=== PATIENT | male | born 1975 | race Caucasian/White ===

== ENCOUNTER → 2017-07-22 | Outpatient (CLI) | payer BC ==
--- NOTE | 2017-07-22 10:13 | US ---
EXAMINATION TYPE: US prostate transrectal DATE OF EXAM: 07/22/2017 COMPARISON: NONE CLINICAL HISTORY: N40.1 BPH. BPH, difficult urination, weak, slow urine stream This examination was performed using the transrectal probe. EXAM MEASUREMENTS: Gland Size: 4.7 x 2.4 x 4.5cm Volume: 26.8ml Predicted PSA: 3.2 Actual PSA (if available):2.0 (PSA from 2015) Enlarged gland with somewhat heterogeneous echogenicity, 3.1 x 2.2 x 1.9cm cystic area seen midline b ase Initial images are seminal vesicles which are felt within normal limits. Prostate gland is upper limi ts of normal in size. Large thin-walled cystic lesion centrally in base measures 3.1 cm on long axis could reflect prostatic utricle cyst or Mullerian duct cyst . IMPRESSION: Prostate gland is normal in size, no worrisome nodules are identified. Note is made of 3 .1 cm central thin-walled cyst in the prostatic base, consider mullerian duct cyst. Advised urology maritza ernst.
== END | disposition home or self-care (01) ==
LOC: RADUSMAIN 08:00
PROVIDERS: ATTEND Family Medicine
DX: N42.83 Cyst of prostate (principal)
CPT/HCPCS: 76872

== ENCOUNTER → 2018-07-29 | Day surgery (SDC) | payer BC ==
[2018-07-27 14:51] VITALS: BMI 40.7
[~2018-07-29] MED LIST: LACTATED RINGERS 1,000 ML IV ONE; LIDOCAINE 1% 20 ML VIAL (10MG/ML) FOR IV START INTRADERMA ONE; LIDOCAINE 1% INJ 10MG/ML (20 ML MDV) ONE; PROPOFOL 10 MG/ML 20 ML VIAL IV ONE
[2018-07-29 11:21] VITALS: RESP 16; TEMP 98.6
--- NOTE | 2018-07-29 12:43 | P.PCN ---
Date of Procedure: 07/29/18 Procedure(s) Performed: Procedure: Colonoscopy and polypectomy. Preoperative diagnosis: Family history of colon cancer. Postoperative Diagnosis: Distal sigmoid polyp snared but no large polyps or cancer. Preparation: HalfLytely prep. Sedation: Was provided by anesthesia. Brief clinical history: The patient is a 43-year-old male who is scheduled for this evaluation because of family history of colon cancer in his father. The purpose of this exam is to rule out neoplasia. The patient has no significant abdominal symptoms, overt bleeding or anemia. Procedure: With the patient on his left lateral decubitus position and after informed consent and adequate sedation, the perianal area was inspected and it did not show any fissures or fistulas. There were no masses felt on digital rectal examination. The Olympus CFQ 160L video colonoscope was then inserted in the rectum in the usual fashion and advanced to the cecum. There was a small polyp in the distal sigmoid that was snared and retrieved by suction and there were no large polyps or cancer. The mucosa appeared healthy. No obvious diverticular disease or other pathology. I retroflexed the endoscope in the rectum before the endoscope was withdrawn. The patient tolerated the procedure well. Plan: The patient was reassured. In light of his history, I am recommending repeat exam in 5 years. He will follow up with you as planned.
[2018-07-29 12:57] VITALS: BP 139/92; PULSE 77
== END ==
LOC: ORWHC2ENDO 10:44
DX: Z12.11 Encounter for screening for malignant neoplasm of colon (principal); K63.5 Polyp of colon; K58.9 Irritable bowel syndrome, unspecified; G47.33 Obstructive sleep apnea (adult) (pediatric); Z72.0 Tobacco use; Z80.0 Family history of malignant neoplasm of digestive organs
CPT/HCPCS: 88305; 45385; J2001; J2704

== ENCOUNTER → 2019-02-03 | Outpatient (CLI) | payer BC ==
--- NOTE | 2019-02-03 13:21 | CT ---
EXAMINATION TYPE: CT thoracic spine wo con DATE OF EXAM: 02/03/2019 COMPARISON: None HISTORY: Upper back pain CT DLP: 2506 mGycm Automated exposure control for dose reduction was used. FINDINGS: The thoracic spine vertebral bodies maintain normal vertebral body heights and alignment. There are s mall anterior osteophytes within the midthoracic spine. Although the spinal canal is limited on CT th ere is no gross evidence of high-grade spinal canal stenosis nor neural foraminal narrowing. Paraspin al musculature is unremarkable and symmetric. A right eccentric disc bulge is seen at T10-T11. Modera te coronary calcifications are seen within the left main coronary artery. Right lower lobe pleural pa renchymal scarring and/or atelectasis is noted. IMPRESSION: 1. NO EVIDENCE OF THORACIC VERTEBRAL BODY HEIGHT LOSS OR MALALIGNMENT. NO ACUTE FRACTURE. MILD MULTIL EVEL DEGENERATIVE DISC DISEASE WITH RIGHT ECCENTRIC BROAD-BASED DISC BULGE AT T10-T11. EVALUATION OF THE SPINAL CANAL IS LIMITED ON CT BUT COULD BE FURTHER EVALUATED WITH MRI. 3. RIGHT LOWER LOBE LINEAR PLEURAL PARENCHYMAL SCARRING AND/OR ATELECTASIS.
--- NOTE | 2019-02-03 15:13 | US ---
EXAMINATION TYPE: US renals and bladder DATE OF EXAM: 02/03/2019 COMPARISON: NONE CLINICAL HISTORY: R82.8 Abnormal Urine cytology. EXAM MEASUREMENTS: Right Kidney: 12.2 x 6.7 x 6.9 cm Left Kidney: 12.3 x 6.1 x 7.9 cm Right Kidney: No hydronephrosis or masses seen Left Kidney: No hydronephrosis or masses seen Bladder: not well distended Bilateral Jets seen: Yes Kidneys show normal cortical medullary differentiation. There is no ascites. Liver has a coarse echotexture which may be indicative of underlying hepatic steatosis. IMPRESSION: Renal sizes as described.
== END | disposition home or self-care (01) ==
LOC: RADCTMAIN 12:07
PROVIDERS: ATTEND Family Medicine
DX: M51.24 Other intervertebral disc displacement, thoracic region (principal); M51.34 Other intervertebral disc degeneration, thoracic region; R82.8 Abnormal findings on cytological and histological examination of urine
CPT/HCPCS: 72128; 76770

== ENCOUNTER → 2021-08-08 | Outpatient (CLI) | payer BC ==
[~2021-08-08] MED LIST changes: +CASIRIVIMAB (REGN10933) (EUA) 600 MG, IMDEVIMAB (REGN10987) (EUA) 600 MG in SODIUM CHLO... IVPB ONE; -LACTATED RINGERS 1,000 ML IV ONE; -LIDOCAINE 1% 20 ML VIAL (10MG/ML) FOR IV START INTRADERMA ONE; -LIDOCAINE 1% INJ 10MG/ML (20 ML MDV) ONE; -PROPOFOL 10 MG/ML 20 ML VIAL IV ONE; +SODIUM CHLORIDE 0.9% 50 ML IVPB ONE; +SODIUM CHLORIDE 0.9% 500 ML 500 ML in EMPTY BAG 1 BAG IV PRN
[2021-08-08 07:49] VITALS: RESP 16; TEMP 98
[2021-08-08 09:13] VITALS: BP 158/90; PULSE 75
== END ==
LOC: PROCWHC3 07:44
PROVIDERS: ATTEND Family Medicine
DX: U07.1 COVID-19 (principal); E66.9 Obesity, unspecified; F17.200 Nicotine dependence, unspecified, uncomplicated; Z68.41 Body mass index [BMI] 40.0-44.9, adult
CPT/HCPCS: 96360; Q0243; M0243; 96361

== ENCOUNTER → 2022-10-06 | Outpatient (CLI) | payer BC ==
--- NOTE | 2022-10-06 08:01 | US ---
EXAMINATION TYPE: US abdomen comp/pelvis limited DATE OF EXAM: 10/06/2022 COMPARISON: US dated 02/03/2019 CLINICAL HISTORY: R10.9 ABD PAIN. RUQ pain EXAM MEASUREMENTS: Liver Length: 14.7 cm Gallbladder Wall: 0.3 cm CBD: 0.5 cm Spleen: 13.2 cm Right Kidney: 12.7 x 6.8 x 7.2 cm Left Kidney: 12.0 x 7.3 x 6.5 cm Pancreas: Obscured by bowel gas Liver: difficult to penetrate Gallbladder: No stones seen CBD: wnl Spleen: wnl Right Kidney: No hydronephrosis or masses seen Left Kidney: No hydronephrosis or masses seen Upper IVC: wnl Abd Aorta: wnl Bladder: wnl Bilateral Jets Seen Yes IMPRESSION: 1. No evidence for acute process. 2. Hepatic steatosis.
== END | disposition home or self-care (01) ==
LOC: RADUSWWP 07:02
PROVIDERS: ATTEND Family Medicine
DX: K76.0 Fatty (change of) liver, not elsewhere classified (principal); R10.11 Right upper quadrant pain
CPT/HCPCS: 76700; 76857

== ENCOUNTER 2024-03-09 09:40 | Day surgery (SDC) | payer BC ==
[~2024-03-09 09:40] MED LIST changes: -CASIRIVIMAB (REGN10933) (EUA) 600 MG, IMDEVIMAB (REGN10987) (EUA) 600 MG in SODIUM CHLO... IVPB ONE; +ONDANSETRON 4 MG/2 ML VIAL IVP PRN; -SODIUM CHLORIDE 0.9% 50 ML IVPB ONE; -SODIUM CHLORIDE 0.9% 500 ML 500 ML in EMPTY BAG 1 BAG IV PRN
[2024-03-09] MEDS: LIDOCAINE 1% (10MG/ML) FOR IV START INTRADERMA PRN (10:20)
[2024-03-09] MEDS: LACTATED RINGERS 1,000 ML IV SCH (10:20)
[2024-03-09 10:46] VITALS: TEMP 98
[2024-03-09] MEDS ORDERED: MIDAZOLAM 2 MG/2 ML VIAL ONE (11:20)
[2024-03-09] MEDS ORDERED: PROPOFOL 10 MG/ML 20 ML VIAL IV ONE (11:20)
--- NOTE | 2024-03-09 11:40 | P.PCN ---
Date of Procedure: 03/09/24 Procedure(s) Performed: BRIEF HISTORY: Patient is a 48-year-old pleasant white male scheduled for an elective colonoscopy as a part of screening for colon cancer. PROCEDURE PERFORMED: Colonoscopy with snare polypectomy. PREOPERATIVE DIAGNOSIS: Screening for colon cancer. IV sedation per Anesthesia. PROCEDURE: After informed consent was obtained, the patient, was brought into the endoscopy unit. IV sedation was administered by Anesthesia under continuous monitoring. Digital rectal examination was normal. Initially the Olympus CF-160 flexible video colonoscope was then inserted in the rectum, gradually advanced into the cecum without any difficulty. Careful examination was performed as the scope was gradually being withdrawn. Ileocecal valve and the appendiceal orifice were visualized and appeared normal. Prep was excellent. Mucosa of the cecum, ascending colon, transverse colon, was normal. In the descending colon there was a 7 mm polyp that was removed by cold snare polypectomy. Rest of the descending colon, sigmoid colon, and rectum appeared normal. Retroflexion was performed in the rectum and no lesions were seen. The patient tolerated the procedure well. IMPRESSION: 7 mm descending colon polyp status post cold snare polypectomy Rest of the colon appeared normal RECOMMENDATIONS: Findings of this examination were discussed with the patient as well as his family. He was advised to follow-up with the biopsy results. If the biopsy reveals adenoma, recommended repeat colonoscopy in 5 years
[2024-03-09 12:37] VITALS: BP 136/93; PULSE 80
[2024-03-09 12:38] VITALS: RESP 18
== END 2024-03-09 12:17 | disposition home or self-care (01) ==
LOC: ORWHC2ENDO 09:40
PROVIDERS: ATTEND Internal Medicine Gastroenterology
DX: Z12.11 Encounter for screening for malignant neoplasm of colon (principal); D12.4 Benign neoplasm of descending colon; I25.10 Atherosclerotic heart disease of native coronary artery without angina pectoris; I10 Essential (primary) hypertension; E78.5 Hyperlipidemia, unspecified; G47.33 Obstructive sleep apnea (adult) (pediatric); E66.01 Morbid (severe) obesity due to excess calories; F17.200 Nicotine dependence, unspecified, uncomplicated; Z86.010 Personal history of colon polyps; Z79.899 Other long term (current) drug therapy
CPT/HCPCS: 88305; 45385; J2250; J2704